=== PATIENT | female | born 1990 ===

== ENCOUNTER 2020-12-03 08:01 | Outpatient (CLI) | payer OTHER | END 2020-12-03 15:37 | disposition home or self-care (01) | LOC: OFIC 805 08:01 | PROVIDERS: ATTEND Otolaryngology Otology & Neurotology | DX: K21.9 Gastro-esophageal reflux disease without esophagitis (principal); R49.0 Dysphonia; R09.89 Other specified symptoms and signs involving the circulatory and respiratory systems ==